=== PATIENT | female | born 1955 | race Caucasian/White ===

== ENCOUNTER 2018-10-08 08:29 | Inpatient (IN) | payer MEDICARE ==
[~2018-10-08] VITALS: Ht 165.1 cm; Wt 72.5 kg
--- NOTE | ~2018-10-08 | HEMODYNAMI ---
PATIENT:VIDYA GRAY MEDICAL RECORD: [id number] : 55 [facility] [id number] ADMISSION DATE: 10/08/18 Generatedon:10/08/201819:36 Patient name: VIDYA GRAY Patient #: [id number] SSN: DO B: 1955 Date of study: 10/08/2018 Page: Of Hemodynamic Procedure Report Patient Data Patient Demographics Procedure consent was obtained First Name: VIDYA Gender: Female Last Name: ISAAC : 1955 [facility] Initial: AMY Age: 63 year(s) Patient #: [id number] Race: Additional ID: [id number] Contact details [address]: [address] [place] [address] State: [place] City: [facility] Zip code: [address] Past Medical History History of disease Date Diagnosis Comments Peripheral vascular disease Allergies Allergen Reaction Date Comments Reported Morphine 12/06/2014 Other allergy 12/06/2014 morphine Morphine 10/08/2018 Other allergy 10/08/2018 macrobid Admission Admission Data Admission Date: 10/08/2018 Admission Time: 8:29 Room #: D.2126 Height (in.): 65 BSA: 1.76 (m2) Height (cm.): 165.1 BMI: 25.13 (kg/m2) Weight (lbs.): 151 Weight (kg.): 68.49 Procedure Procedure Types Cath Procedure Peripheral Cath Diagnostic Procedure Abd/Extremity Extremities Bilat Lower Extremity Procedure Description Procedure Date Procedure Date: 10/08/2018 Procedure Start Time: 16:54 Procedure Staff Name Function Dio Blair MD Performing Physician Lelia Patton RT Marketing Operations Specialist Darling Fuchs RN Nurse Doron Mathews RT Scrub Procedure Data Cath Procedure Fluoroscopy Diagnostic fluoroscopy Total fluoroscopy Time: time: 23.6 min 23.6 min Diagnostic fluoroscopy Total fluoroscopy dose: dose: 1183 mGy 1183 mGy Contrast Material Contrast Material Type Amount (ml) Isovue 300 200 Entry Location Entry Primary Successful Side Size Upsize Upsize Entry Closure Succes sful Closure Location (Fr) 1 (Fr) 2 (Fr) Remarks Device Remarks Femoral Exoseal artery Procedure Medications Medication Administration Route Dosage Heparin Flush Bag added to field 3 bags (1000units/500ml NS) Lidocaine 1% added to field 20 Versed I.V. 1 mg Fentanyl I.V. 50 mcg Benadryl I.V. 50 mg Versed I.V. 1 mg Fentanyl I.V. 50 mcg Heparin Bolus I.V. 4000 units Versed I.V. 1 mg Fentanyl I.V. 50 mcg Heparin Bolus I.V. 1000 units Versed I.V. 1 mg Fentanyl I.V. 50 mcg Heparin Bolus I.V. 1000 units Nitroglycerin IC/IA I.A. 300 mcg Hemodynamics Rest BSA: 1.76 (m2) O2 Consumption: Estimated: 157.18 (ml/min) O2 Consumption indexed : Estimated:89.31 (ml/min/m) Heart Rate: 58 (bpm) Snapshots Pre Cath Intra NCS Post Cath Vital Signs Time Heart Resp SPO2 etCO2 NIBP (mmHg) Rhythm Pain Sedation Rate (ipm) (%) (mmHg) Status Level (bpm) 16:23:47 62 7 98 42 124/63(106) NSR 0 (11) 10(A) , No pain 16:28:01 60 6 97 26.2 120/57(105) NSR 0 (11) 10(A) , No pain 16:32:09 61 9 97 43.5 125/65(104) NSR 0 (11) 10(A) , No pain 16:36:20 58 6 97 41.2 122/62(92) NSR 0 (11) 10(A) , No pain 16:40:32 59 9 97 44.2 119/56(96) NSR 0 (11) 10(A) , No pain 16:44:40 58 23 97 45 121/65(104) NSR 0 (11) 10(A) , No pain 16:48:50 62 5 98 51 127/62(117) NSR 0 (11) 10(A) , No pain 16:53:02 59 9 98 44.2 124/61(102) NSR 0 (11) 10(A) , No pain 16:58:01 59 6 97 48.7 Measuring NSR 0 (11) 8(A) , No pain 16:58:24 58 5 98 44.2 110/52(74) NSR 0 (11) 8(A) , No pain 17:02:29 63 0 98 39.7 118/63(108) NSR 0 (11) 8(A) , No pain 17:06:39 58 4 98 41.2 117/58(100) NSR 0 (11) 8(A) , No pain 17:10:47 61 11 97 42.7 119/62(98) NSR 0 (11) 8(A) , No pain 17:15:03 61 20 98 48.7 102/38(83) NSR 0 (11) 8(A) , No pain 17:19:07 63 11 97 43.4 120/59(102) NSR 0 (11) 8(A) , No pain 17:23:19 63 12 95 0 100/54(83) NSR 0 (11) 8(A) , No pain 17:27:23 64 16 97 38.9 116/56(95) NSR 0 (11) 8(A) , No pain 17:31:33 63 13 96 31.5 107/55(87) NSR 0 (11) 8(A) , No pain 17:35:38 61 11 97 13.4 106/58(91) NSR 0 (11) 8(A) , No pain 17:39:44 59 14 97 43.5 100/59(89) NSR 0 (11) 8(A) , No pain 17:43:48 59 12 96 46.5 113/58(80) NSR 0 (11) 8(A) , No pain 17:47:56 60 12 97 44.2 108/57(90) NSR 0 (11) 8(A) , No pain 17:52:01 60 12 97 40.5 103/57(86) NSR 0 (11) 8(A) , No pain 17:56:07 60 10 97 39 110/57(89) NSR 0 (11) 8(A) , No pain 18:00:13 60 11 97 39 116/59(95) NSR 0 (11) 8(A) , No pain 18:04:23 58 13 97 38.2 106/56(87) NSR 0 (11) 8(A) , No pain 18:08:31 60 14 97 38.2 105/53(86) NSR 0 (11) 8(A) , No pain 18:12:37 60 12 96 17.9 111/59(85) NSR 0 (11) 8(A) , No pain 18:16:45 60 12 95 15.7 112/59(94) NSR 0 (11) 8(A) , No pain 18:20:54 60 20 96 33.7 111/54(90) NSR 0 (11) 8(A) , No pain 18:25:04 66 11 95 39.7 93/53(74) NSR 0 (11) 8(A) , No pain 18:29:06 68 11 94 39.7 102/54(72) NSR 0 (11) 8(A) , No pain 18:33:10 67 14 96 41.2 99/58(76) NSR 0 (11) 8(A) , No pain 18:37:13 67 12 96 38.9 109/59(85) NSR 0 (11) 8(A) , No pain 18:41:21 64 11 96 38.2 104/55(89) NSR 0 (11) 8(A) , No pain 18:45:27 65 9 98 51.7 105/57(74) NSR 0 (11) 8(A) , No pain 18:49:33 64 12 97 49.4 109/60(79) NSR 0 (11) 8(A) , No pain 18:53:39 64 13 97 34.4 97/62(73) NSR 0 (11) 8(A) , No pain 18:57:42 63 8 97 41.2 106/54(87) NSR 0 (11) 8(A) , No pain 19:01:48 64 15 97 39.7 114/62(98) NSR 0 (11) 8(A) , No pain 19:05:55 65 12 97 35.9 101/60(93) NSR 0 (11) 8(A) , No pain 19:09:59 66 12 97 30.7 119/61(85) NSR 0 (11) 9(A) , No pain 19:14:11 63 7 96 84/55(66) NSR 0 (11) 10(A) , No pain 19:19:04 68 7 98 44.9 108/60(80) NSR 0 (11) 10(A) , No pain 19:23:10 64 8 97 38.2 113/60(79) NSR 0 (11) 10(A) , No pain 19:27:16 62 14 97 41.2 110/60(95) NSR 0 (11) 10(A) , No pain 19:31:21 65 11 99 46.5 103/62(82) NSR 0 (11) 10(A) , No pain 19:35:25 61 10 98 54 103/58(78) NSR 0 (11) 10(A) , No pain Medications Time Medication Route Dose Verified Delivered Reason Notes Effe ctiveness by by 16:48:10 Heparin Flush added 3 Dio Wharton used for Bag to bags Rossy Blair MD procedure (1000units/500ml field HAM NS) 16:48:24 Lidocaine 1% added 20ml Dio Wharton for local to vial Rossy Blair MD anesthetic field 16:55:42 Versed I.V. 1 mg Dio Hastings for Jef Blair RN sedation 16:55:57 Fentanyl I.V. 50 Dio Darling for mcg Jef Blair RN sedation 17:02:04 Benadryl I.V. 50 mg Dio Hastings for Jef Blair RN sedation 17:09:46 Versed I.V. 1 mg Dio Sanchezody for Jef Blair RN sedation 17:09:54 Fentanyl I.V. 50 Dio Darling for mcg Jef Blair RN sedation 17:20:54 Heparin Bolus I.V. 4000 Dio Darling Per units Jef Blair RN physician 18:01:34 Versed I.V. 1 mg Dio Darling for Jef Blair RN sedation 18:01:42 Fentanyl I.V. 50 Dio Darling for mcg Jef Blair RN sedation 18:23:22 Heparin Bolus I.V. 1000 Dio Darling Per units Jef Blair RN physician 18:23:29 Versed I.V. 1 mg Dio Darling for Jef Blair RN sedation 18:23:36 Fentanyl I.V. 50 Dio Hastings for [facility] Jef Blair RN sedation 18:59:40 Heparin Bolus I.V. 1000 Dio Hastings Per units Jef Blair RN physician 19:11:18 Nitroglycerin I.A. 300 Dio Wharton IC/IA [facility] Rossy Blair MD MD Procedure Log Time Note 15:46:44 Patient Height : 65 inches 15:46:51 Patient Weight : 151 lbs 15:47:36 Use device set IR Diagnostic 15:48:53 TUBING Contrast Injection High Pressure (OIJ114V) opened to sterile field. 15:48:53 ROSE 260 wire (J32815) opened to sterile field. 15:48:54 CHOICE PT Floppy Straight 300cm guide wire ([id number]) opened to sterile field. 15:48:55 DOC .035 wire (F12053) opened to sterile field. 15:48:56 SHEATH 5FR [place] (IUY815) opened to sterile field. 15:48:57 Micropuncture VSI 4FR kit opened to sterile field. 15:48:58 Tegaderm 4 x 4 (1626W) opened to sterile field. 15:48:59 Sterile Angiographic Pack opened to sterile field. 15:49:00 Bag Decanter (2002S) opened to sterile field. 15:49:01 ACIST Manifold (51955) opened to sterile field. 15:49:02 ACIST Hand Control (72196) opened to sterile field. 15:49:03 ACIST Syringe (59397) opened to sterile field. 16:12:40 Time tracking: Regular hours (M-F 7:00 - 5:00) 16:12:55 Plan of Care:Hemodynamics will remain stable., Cardiac rhythm will remain stable., Comfort level will be maintained., Respiratory function will remain adequate., Patient/ family verbilizes understanding of procedure., Procedure tolerated without complication., Recovers from procedure without complications.. 16:13:02 Patient received from Med II to IR Alert and oriented. Tansferred to table in Supine position. 16:13:06 Signed procedure consent form obtained from patient. 16:13:08 Correct patient and procedure confirmed by team. 16:13:21 H&P Date Dictated: 10/08/2018 Within 30 days and on chart.. 16:13:23 Pre-procedure instructions explained to patient. 16:13:24 Pre-op teaching completed and patient verbalized understanding. 16:13:27 Family in waiting room. 16:13:32 Patient NPO since Midnight. 16:13:51 Patient allergic to Morphine 16:14:39 Patient allergic to Other allergymacrobid 16:14:44 Is the patient allergic to Iodine/contrast media? No. 16:14:46 Is patient on blood thinner?Yes 16:14:51 Patient diabetic? Yes. 16:14:53 If diabetic: On Metformin? No 16:14:55 - 16:14:57 ----Pre-sedation anethsthesia assessment.---- 16:15:01 Previous problem with sedation/anesthesia? No ? 16:15:07 Snore? Yes 16:15:09 Sleep apnea? No 16:15:13 Deviated septum? No 16:15:15 Opens mouth fully? Yes 16:15:18 Sticks out tongue? Yes 16:15:25 Airway obstruction? Yes cad and copd 16:15:39 Dentures? Yes secured 16:16:13 IV patent on arrival in right forearm with D5/.45%NaCl at [facility]. 16:16:26 Right groin area was prepped with chlora-prep and draped in sterile fashion 16:16:28 - 16:20:07 Pre procedure: right dorsailis pedis pulse Doppler 16:20:12 Pre procedure: right posterior tibial pulse Doppler 16:22:32 Vital chart was started 16:24:36 - 16:24:41 ECG and BP/O2 sat monitors applied to patient. 16:24:44 Baseline sample Acquired. 16:24:46 Full Disclosure recording started 16:24:48 - 16:32:55 Angiodynamics Omniflush 5Fr 65cm ([id number]) opened to sterile field. 16:33:07 GLIDE WIRE ANGLE 180cm (QA7780) opened to sterile field. 16:33:28 TORQUE DEVICE PLASTIC .038 ( TD01) opened to sterile field. 16:34:14 Pre procedure: left dorsailis pedis pulse Doppler 16:34:33 Pre procedure: left posterior tibial pulse Doppler 16:35:12 GLIDE CATHETER 5FR ANGLED 65cm (CG507) opened to sterile field. 16:48:10 Heparin Flush Bag (1000units/500ml NS) 3 bags added to field was administered by Dio Blair MD; used for procedure; 16:48:24 Lidocaine 1% 20ml vial added to field was administered by Dio Blair MD; for local anesthetic; 16:50:16 Fire Safety Assessment: A--An alcohol-based skin anteseptic being used preoperatively., C--Open oxygen or nitrous oxide is being used. 16:53:16 Physician arrived 16:53:18 --------ALL STOP TIME OUT------ 16:53:19 Final Timeout: patient, procedure, and site verified with staff and physician. All members of the team are in agreement. 16:54:49 Procedure started. 16:54:52 Local anesthetic to right femoral artery with Lidocaine 1% by Dio Blair MD.INITIAL ACCESS ONLY 16:55:42 Versed 1 mg I.V. was administered by Darling Fuchs RN; for sedation; 16:55:57 Fentanyl 50 mcg I.V. was administered by Darling Fuchs RN; for sedation ; 17:01:19 Arterial access obtained using ultrasound guidance. 17:01:33 AMPLATZ Super Stiff 75cm wire ([id number]) opened to sterile field. 17:02:04 Benadryl 50 mg I.V. was administered by Darling Fuchs RN; for sedation; 17:09:46 Versed 1 mg I.V. was administered by Darling Fuchs RN; for sedation; 17:09:54 Fentanyl 50 mcg I.V. was administered by Darling Fuchs RN; for sedation ; 17:10:45 SHEATH 6FR [place] (RSR01) opened to sterile field. 17:16:50 ROADRUNNER .035 260 glide wire (G28513) opened to sterile field. 17:16:51 CXI SUPPORT .035 135 CM STR catheter (P48842) opened to sterile field. 17:18:30 Angiography was performed. 17:20:54 Heparin Bolus 4000 units I.V. was administered by Darling Fuchs RN; Per physician; 17:24:17 GLIDE WIRE ANGLE 260cm (JA5201) opened to sterile field. 18:01:34 Versed 1 mg I.V. was administered by Darling Fuchs RN; for sedation; 18:01:42 Fentanyl 50 mcg I.V. was administered by Darling Fuchs RN; for sedation ; 18:14:48 CXI Catheter 90cm (E35999) opened to sterile field. 18:15:21 SHEATH 6FR Slender (80-1060) opened to sterile field. 18:17:42 INFLATOR BasixTOUCH (UR7752) opened to sterile field. 18:18:29 Inflate balloon Inflation number: 1 A Evercross 5 x 100 x 135 Balloon ([id number]) was prepped and advanced across the Undefined1 , then inflate . 18:23:22 Heparin Bolus 1000 units I.V. was administered by Darling Fuchs RN; Per physician; 18:23:29 Versed 1 mg I.V. was administered by Darling Fuchs RN; for sedation; 18:23:36 Fentanyl 50 mcg I.V. was administered by Darling Fuchs RN; for sedation ; 18:27:53 Navicross Support Straight .035 150cm catheter (RQ96170) opened to sterile field. 18:31:50 Inflate balloon Inflation number: 2 A Evercross 3 x 100 x 135 Balloon ([id number]) was prepped and advanced across the Undefined1 , then inflated . 18:39:23 Hawkone Medium Atherectomy System (H1-M) opened to sterile field. 18:54:12 Inflate balloon Inflation number: 3 A IN.PACT Admiral 5 x 150 x 130 DCB balloon ([id number]) was prepped and advanced across the Undefined1 , then inflated . 18:58:14 Inflate balloon Inflation number: 1 A IN.PACT Admiral 5 x 150 x 130 DCB balloon ([id number]) was prepped and advanced across the Undefined2 , then inflated . 18:59:40 Heparin Bolus 1000 units I.V. was administered by Darling Fuchs RN; Per physician; 19:07:29 SHEATH 6FR [place] (IEW738) opened to sterile field. 19:11:18 Nitroglycerin IC/IA 300 mcg I.A. was administered by Dio Blair MD; ; 19:13:51 EXOSEAL 6Fr (EX600) opened to sterile field. 19:17:16 Sheath removed intact; hemostasis achieved with Exoseal to the Femoral artery. 19:17:16 A sheath was inserted into the Femoral artery 19:17:20 Procedure ended.(Physican Out) 19:17:37 Fluoroscopy time 23.60 minutes. 19:17:43 Fluoroscopy dose: 1183 mGy 19:17:43 Flurop Dose total: 1183 19:17:50 Contrast amount:Isovue 300 200ml. 19:17:58 Procedure and supply charges have been captured, reviewed, submitted an d are correct. 19:20:39 Report given to Total Eclipse. 19:36:15 Vital chart was stopped Intervention Summary Intervention Notes Time ActionType Lesion and Equipment Used Action# Pressure Duration Attributes 18:18:29 Inflate Undefined1 Evercross 5 x 1 0 00:00 balloon 100 x 135 Balloon ([id number]) 18:31:50 Inflate Undefined1 Evercross 3 x 2 0 00:00 balloon 100 x 135 Balloon ([id number]) 18:54:12 Inflate Undefined1 IN.PACT Admiral 3 0 00:00 balloon 5 x 150 x 130 DCB balloon ([id number]) 18:58:14 Inflate Undefined2 IN.PACT Admiral 1 0 00:00 balloon 5 x 150 x 130 DCB balloon ([id number]) Device Usage Item Name Manufacture Quantity Catalog Number Hospital Part Current Minimal Lot# / Charge Number Stock Stock Serial# Code TUBING Contrast Merit Medical 1 [id number] 295200 980331 840745 5 Injection High Pressure (DYG243V) ROSE 260 wire Cook Medical 1 Q02033 805230 20919 524427 5 (A61799) CHOICE PT Glouster 1 [id number] 248216 086090 103362 5 Floppy Straight Scientific 300cm guide wire (80244028) DOC .035 wire Cook Medical 1 K85220 391398 901110 5 (A79478) SHEATH 5FR Terumo 1 LMS191 894913 731493 752230 5 [place] (STM414) Micropuncture VSI VASCULAR 1 7266V 850039 384390 5 VSI 4FR kit SOLUTIONS Tegaderm 4 x 4 3M 1 1626W 184656 030815 900388 5 (1626W) Sterile Cardinal 1 [id number] 317769 053928 5 Angiographic Health Pack Bag Decanter Microtek 1 2001S 025902 02550 962332 5 (2001S) Medical Inc. ACIST Manifold Acist Medical 1 01083 982356 880459 191745 5 (18761) Systems Inc ACIST Hand Acist Medical 1 26361 313937 254528 934586 5 Control (24055) Systems Inc ACIST Syringe Acist Medical 1 44460 622742 129479 215486 20 (57703) Systems Inc Angiodynamics Angiodynamics 1 58236688 536953 131732 041105 5 Omniflush 5Fr 65cm (45554213) GLIDE WIRE Terumo 1 ZY2840 936685 340507 764656 5 ANGLE 180cm (NP3191) TORQUE DEVICE Glouster 1 TD01 589474 082381 289304 5 PLASTIC .038 ( Scientific TD01) GLIDE CATHETER Terumo 1 CG507 383225 390089 5 5FR ANGLED 65cm (CG507) AMPLATZ Super Glouster 1 [id number] 143016 813207 082564 5 Stiff 75cm wire Scientific ([id number]) SHEATH 6FR Terumo 1 RSR01 953243 48843 625119 5 Destination (RSR01) ROADRUNNER .035 Cook Medical 1 P14167 195078 417979 774542 5 9745589 260 glide wire (U89080) CXI SUPPORT Cook Medical 1 D72027 631822 690649 512583 5 4190844 .035 135 CM STR catheter (Y97412) GLIDE WIRE Terumo 1 ZW1356 632524 286132 669262 5 ANGLE 260cm (CL0705) CXI Catheter [facility] 1 K24859 396460 920255 787525 5 0850642 90cm (N18114) SHEATH 6FR Terumo 1 [id number] 573633 959492 150627 5 Slender (80-1060) INFLATOR [facility] 1 RK4880 609896 544590 101826 5 BasixTOUCH (RK5327) Evercross 5 x Medtronic 1 [id number] 791573 275350 629266 5 o282082 100 x 135 Balloon ([id number]) Navicross Terumo 1 DD11929 655132 725138 219639 5 Support Straight .035 150cm catheter (ZN96816) Evercross 3 x Medtronic 1 [id number] 629996 13990 442322 5 o198220 100 x 135 Balloon ([id number]) Hawkone Medium Medtronic 1 H1-M 741484 5152875 7 5 Atherectomy System (H1-M) IN.PACT Admiral Medtronic 2 [id number] 849009 7870177 197009 5 [id number] 5 x 150 x 130 [id number] DCB balloon ([id number]) SHEATH 6FR Terumo 1 PTL677 982151 562496 913708 40 [place] (JAM241) EXOSEAL 6Fr Cardinal 1 EX600 808671 086842 465340 10 [id number] (EX600) Health Signature Audit [place] Stage Time Signature Unsigned Intra-Procedure 10/08/2018 Lelia Patton 7:36:10 PM RT(R) [place] [address] [place] [address]
[~2018-10-08 08:29] MED LIST: BAYER CHEWABLE81 MG PO; ELAVIL25 MG PO; LEVEMIR100 U/M1 SC; NEURONTIN 300300 MG PO; PERCOCET 7.5/321 TAB PO; PLAVIX75 MG PO; SYNTHROID75 MCG PO; TALWIN NX1 TAB PO; ZEBETA5 MG PO
[2018-10-08] MEDS ORDERED: LEVEMIR FL100 UNIT/1 SC (09:18)
[2018-10-08] MEDS ORDERED: PAXIL20 MG PO (09:34)
[2018-10-08] MEDS ORDERED: FUROSEMIDE20 MG PO (09:35)
[2018-10-08] MEDS ORDERED: TALWIN NX1 TAB PO (09:36)
[2018-10-08] MEDS ORDERED: TALWIN NX1 TAB (09:38)
[2018-10-08] MEDS ORDERED: LIPITOR80 MG PO (09:40)
[2018-10-08] MEDS ORDERED: ZANAFLEX4 MG PO (09:43)
[2018-10-08] MEDS ORDERED: VALIUM10 MG (09:47)
[2018-10-08 10:16] LABS: BASOPHILS 0.3 % (0-2); EOSINOPHILS 3.1 % (0-7); HEMATOCRIT 42.2 % (36.0-48.0); HEMOGLOBIN 14.7 g/dL (12-16); IMMATURE GRANULOCYTES 0.6 % (0-5); MCH 29.7 pg (26.0-34.0); MCHC 34.8 g/dL (31.0-37.0); MCV 85.3 fL (80.0-100.0); MEAN PLATELET VOLUME 9.1 fL (7.4-10.4); MONOCYTES 6.3 % (2-11); NEUTROPHILS 70.7 % (40-80); PLATELET COUNT 193 10x3/uL (130-400); RBC 4.95 10x6/uL (4.00-5.40); RDW 13.1 % (11.5-14.5); WBC 7.1 10x3/uL (4.8-10.8)
[2018-10-08 10:17] LABS: INR 1.02 (0.85-1.17); PROTIME 12.9 SECONDS (11.6-15.0)
[2018-10-08 10:18] LABS: APTT 33.4 SECONDS (22.8-39.4)
[2018-10-08] MEDS ORDERED: BISOPROLOL-HCT1 EAC1 PO (10:19)
[2018-10-08] MEDS ORDERED: ROPINIROLE HCL2 MG PO (10:22)
[2018-10-08] MEDS ORDERED: ZANTAC300 MG PO (10:23)
[2018-10-08 10:25] LABS: ANION GAP 9.9 mmol/L (8-16); BILIRUBIN - TOTAL 0.33 mg/dL (0.2-1.3); CALCIUM 8.5 mg/dL (8.5-10.1); CARBON DIOXIDE 30.9 mmol/L (21.0-32.0); POTASSIUM - SERUM 3.8 mmol/L (3.5-5.1); PROTEIN - SERUM 7.2 g/dL (6.4-8.2)
[2018-10-08 11:19] VITALS: BP 122/59; BMI 25.1
--- NOTE | 2018-10-08 11:28 | NUR ---
ARRIVED FROM HOME VIA A DIRECT ADMIT. CO WOUND IN L FOOT ON 5TH METATARSAL. DRESSING INTACT WITH BLOODY DRAINAGE. IV STARTED WITH 20G IN R FOREARM. DEMEROL COMPUTER NUMERICAL CONTROL OPERATOR STARTED. SEE ASSESSMENT FOR FURTHER EVAL.
[2018-10-08 12:44] VITALS: BP 103/53
--- NOTE | 2018-10-08 13:30 | NUR ---
IV 20 SHARAD TO RIGHT FA. DEMEROL VENETIAN BLIND MECHANIC STARTED. TELEMERTY SHOWS SB 58, DENIES ANY NEEDS. NPO FOR NOW
--- NOTE | 2018-10-08 14:15 | NUR ---
TO SPECIALS FOR IR TO LEFT LEG
[2018-10-08 16:30] VITALS: BP 110/58
[2018-10-08 20:00] VITALS: BP 120/53
[2018-10-08 20:22] VITALS: BP 120/53
--- NOTE | 2018-10-08 20:25 | NUR ---
RECEIVED PT BACK FROM IR, DRESSING TO R. GROIN D/C/I, SOFT AROUND DRESSING, DRESSING TO L. ANKLE, DCI, HELPDESK ADMINISTRATOR HOOKED BACK UP, PROVIDE PT WITH A SANDWICH AND COFFEE
[2018-10-08 20:26] LABS: HEMATOCRIT 42.1 % (36.0-48.0); HEMOGLOBIN 14.4 g/dL (12-16); MCH 30.1 pg (26.0-34.0); MCHC 34.2 g/dL (31.0-37.0); MEAN PLATELET VOLUME 8.9 fL (7.4-10.4); RBC 4.79 10x6/uL (4.00-5.40); WBC 5.7 10x3/uL (4.8-10.8)
[2018-10-08 20:29] LABS: MCV 87.9 fL (80.0-100.0)
[2018-10-08 20:35] LABS: INR 1.22 (0.85-1.17); PROTIME 14.9 SECONDS (11.6-15.0)
[2018-10-08 20:46] LABS: APTT 112.7 SECONDS (22.8-39.4)
--- NOTE | 2018-10-08 23:00 | NUR ---
HEPARIN STARTED AT 800 UNIT TO LFA
--- NOTE | 2018-10-08 23:04 | NUR ---
22G PIV STARTED IN LEFT FOREARM. ONE ATTEMPT. HEPARIN STARTED ORDERED. PT HAS NO S/S OF DISTRESS. FAMILY AT BEDSIDE. WILL CPOC
[2018-10-09] VITALS (7 sets, daily range): BP systolic 99–125; BP diastolic 43–63; Ht 165.1 cm; Wt 72.5 kg
[2018-10-09 00:10] LABS: HEMATOCRIT 38.3 % (36.0-48.0); HEMOGLOBIN 13.2 g/dL (12-16); MCHC 34.5 g/dL (31.0-37.0); MEAN PLATELET VOLUME 8.6 fL (7.4-10.4); RBC 4.4 10x6/uL (4.00-5.40); RDW 12.5 % (11.5-14.5); WBC 4.9 10x3/uL (4.8-10.8)
--- NOTE | 2018-10-09 04:06 | NUR ---
I have reviewed this patient and I concur with the Shift Assessment completed by the Licensed Practical Nurse today this shift.
[2018-10-09 05:49] LABS: HEMATOCRIT 39.7 % (36.0-48.0); HEMOGLOBIN 13.1 g/dL (12-16); MCH 28.7 pg (26.0-34.0); MCV 87.1 fL (80.0-100.0); MEAN PLATELET VOLUME 9.3 fL (7.4-10.4); RBC 4.56 10x6/uL (4.00-5.40); RDW 13.1 % (11.5-14.5); WBC 6.1 10x3/uL (4.8-10.8)
[2018-10-09 06:11] LABS: CALC OSMOLALITY 278 mosm/kg (275-300); CARBON DIOXIDE 29.8 mmol/L (21.0-32.0); CHLORIDE - SERUM 100 mmol/L (98-107); CREATININE - SERUM 0.8 mg/dL (0.6-1.3); GLUCOSE 210 mg/dL (74-106); POTASSIUM - SERUM 3.6 mmol/L (3.5-5.1); SODIUM 137 mmol/L (136-145); eGFR NON AFRICAN AMERICAN 77 mL/min (90-120)
[2018-10-09 06:12] LABS: UREA NITROGEN 9 mg/dL (7-18)
--- NOTE | 2018-10-09 07:00 | NUR ---
RECEIVED REPORT. ASSUMED CARE OF PATIENT. CALL LIGHT WITHIN REACH. PATIENT RESTING IN BED WITH EYES CLOSED. RESP EVEN AND UNLABORED. SR ON TELEMETRY. PATIENTS SPOUSE AT BEDSIDE. NO DISTRESS.
--- NOTE | 2018-10-09 09:31 | NUR ---
FSBS 212. 20 UNITS LEVIMER ADMINISTERED ORDERED
--- NOTE | 2018-10-09 11:42 | NUR ---
SPOKE WITH AND RECEIVED VERBAL ORDERS TO PROVIDE WOUND CARE TO LEFT METATARSAL THAT HAS BEEN BEING TREATED AT THE WOUND CLINIC. THANKED AND ORDERS HAVE BEEN PLACED AT THIS TIME.
--- NOTE | 2018-10-09 12:01 | NUR ---
FSBS 235. UNITS INSULIN ADMINISTERED PER SLIDING SCALE.
--- NOTE | 2018-10-09 13:29 | NUR ---
PER VERBAL ORDERS RECEIVED BY , HEPARIN DRIP D/C'D AT THIS TIME. SEE INTERVENTIONAL RADIOLOGY NOTE FOR CONFIRMATION OF THIS ORDER.
--- NOTE | 2018-10-09 13:46 | NUR ---
WOUND CARE TO LEFT FOOT COMPLETE AT THIS TIME. TOLERATED WOUND CARE WELL. LATERAL ASPECT OF FOOT AT THE 5TH METATARSAL. WOUND IS APPROX 2 2 X 2 X 1.5CM. WOUND IS VERY ODOROUS, DRAINAGE IS BLOOD/RUST COLORED. LESS THAN 25% SCATTTERED SLOUGH TO WOUND BED. EDGES ARE MACERATED. SKIN PREP APPLIED TO WOUND EDGES PRIOR TO LIGHTLY REPACKING WOUND BED WITH DAMPENED DAKINS 2X2 GAUZE.
--- NOTE | 2018-10-09 16:52 | NUR ---
FSBS 310. 12 UNITS HUMULIN ADMINISTERED ORDERED PER SLIDING SCALE.
--- NOTE | 2018-10-09 18:34 | NUR ---
RESTING WITH EYES CLOSED. NO DISTRESS. CALL LIGHT WITHIN REACH.
--- NOTE | 2018-10-09 19:30 | NUR ---
RECEIVED REPORT, WILL ASSUME CARE OF PT, PT VISITING WITH , DENIES ANY NEEDS AT THIS TIME, BED IS LOW, SRX 2, CALL LIGHT IN REACH, WILL CONTINUE PLAN OF CARE
--- NOTE | 2018-10-09 20:04 | NUR ---
COLLECT UA, TAKEN TO LAB
[2018-10-09 20:33] LABS: APPEARANCE CLEAR (CLEAR); BILIRUBIN NEGATIVE (NEGATIVE); COLOR YELLOW (YELLOW); GLUCOSE NEGATIVE (NEGATIVE); KETONE NEGATIVE (NEGATIVE); NITRITE NEGATIVE (NEGATIVE); PROTEIN NEGATIVE (NEGATIVE); UROBILINOGEN NORMAL (NORMAL)
--- NOTE | 2018-10-09 20:45 | NUR ---
PM HEAD COOK IN ROOM ASSISTING PT WITH WASH UP
--- NOTE | 2018-10-09 21:13 | NUR ---
PM MEDS GIVEN, ASK FOR NORCO, GIVEN REQUESTING, [id number] 8 UNITS OF HUMULIN R, ASLO 42 UNITS OF LEVEMIR, PROVIDED ICE WATER
[2018-10-10] VITALS: BP 120/52
[2018-10-10 04:00] VITALS: BP 129/69
--- NOTE | 2018-10-10 04:30 | NUR ---
I have reviewed this patient and I concur with the Shift Assessment completed by the Licensed Practical Nurse today this shift.
--- NOTE | 2018-10-10 04:30 | NUR ---
I have reviewed this patient and I concur with the Shift Assessment completed by the Licensed Practical Nurse today this shift.
--- NOTE | 2018-10-10 07:00 | NUR ---
RECEIVED REPORT. ASSUMED CARE OF PATIENT. RESTING IN BED WITH EYES OPEN. PATIENT HAVING COFFEE AT THIS TIME. PATIENT AT BEDSIDE. CALL LIGHT WITHIN REACH. DENIES NEEDS AT THIS TIME. NO DISTRESS.
[2018-10-10 07:43] VITALS: BP 131/56
[2018-10-10 08:12] LABS: HEMATOCRIT 39.9 % (36.0-48.0); HEMOGLOBIN 13.9 g/dL (12-16); MCH 29.8 pg (26.0-34.0); MCHC 34.8 g/dL (31.0-37.0); MCV 85.4 fL (80.0-100.0); MEAN PLATELET VOLUME 9.5 fL (7.4-10.4); RBC 4.67 10x6/uL (4.00-5.40); WBC 5.5 10x3/uL (4.8-10.8)
--- NOTE | 2018-10-10 08:53 | NUR ---
FSBS 160. 20 UNITS LEVIMER ADMINISTERED ORDERED.
[2018-10-10 11:30] VITALS: BP 109/54
--- NOTE | 2018-10-10 12:05 | NUR ---
FSBS 248. 8 UNITS INSULIN ADMINISTERED PER SLIDING SCALE.
--- NOTE | 2018-10-10 13:14 | NUR ---
DR. ELISE HERE FOR ROUNDS. ACCORDING TO PATIENT, SHE IS GETTING TO GO HOME TODAY.
[2018-10-10] MEDS ORDERED: HYDROCODON-ACE1 EAC7 PO (13:23)
--- NOTE | 2018-10-10 13:28 | NUR ---
MEDICATED FOR PAIN TO LEG AND FOOT AT THIS TIME.
--- NOTE | 2018-10-10 14:27 | NUR ---
20 GAUGE IV REMOVED FROM RIGHT FOREARM. CATHETER TIP INTACT. NO BLEEDING FROM SITE. 2X2 GAUZE APPLIED AND SECURED WITH BANDAID. PATIENT IS DISCHARGING TO HOME. 22 GAUGE IV REMOVED FROM LEFT FOREARM. CATHETER TIP INTACT. NO BLEEDING FROM SITE. 2X2 GAUZE APPLIED AND SECURED WITH BANDAID. TOLERATED IV REMOVAL WELL. NO DISTRESS.
--- NOTE | 2018-10-10 14:40 | NUR ---
DISCHARGE INSTRUCTIONS PROVIDED TO PATIENT AND HER SPOUSE. PATIENT VERBALIZED UNDERSTANDING FOR ALL INSTRUCTIONS PROVIDED.
--- NOTE | 2018-10-10 15:04 | NUR ---
PATIENT LEFT UNIT VIA WHEELCHAIR IN NO DISTRESS WITH ALL PERSONAL BELONGINGS. PATIENT DISCHARGED TO HOME WITH HER . PATIENT PROVIDED HARD SCRIPT FROM DR. ELISE FOR [place]. NO DISTRESS UPON LEAVING UNIT. TELEMETRY RETURNED TO MONITOR STATION.
--- NOTE | 2018-10-11 09:30 | MORECARE ---
CASE MANAGEMENT DISCHARGE SUMMARY PATIENT: VIDYA GRAY UNIT: [id number] ADM DATE: 10/08/18 AGE: 63 : 55 SEX: F ROOM/BED: D.6426 AUTHOR: KACIE CLARK PHYSICIAN: REFERRING PHYSICIAN: SUDHAKAR ELISE MD DATE OF SERVICE: 10/11/18 Discharge Plan Patient Name: VIDYA GRAY Facility: [facility]:[place] : 1955 Planned Disposition: Home Anticipated Discharge Date: 10/10/18 Discharge Date: 10/10/2018 Expected LOS: 2 Initial Reviewer: [email or web address] Initial Review Date: 10/11/2018 Generated: 10/11/18 10:30 am Coverage Notice Reviewer: [email or web address] Jessica Kirk Notice Issued Date-Time: 10/10/2018 13:30 Notice Type: IM Discharge Notice Notice Delivered To: Patient Relationship to Patient: Self Church Worker Name: Delivery Method: HAND - Hand Delivered Reena Days: Prior Verbal Notification: Recipient Understood Notice: Yes Recipient Signature: Yes Med Rec Note Co-signed by Attending: Coverage Notice Comment: Patient Name: VIDYA GRAY Page [phone] at 0930 All edits/amendments must be made on the electronic document DICTATION DATE: 10/11/18929 BOOKING AGENT: EVELYN 10/11/18929 RPT#: [id number] DC DATE:10/10/18 STATUS: DIS IN [facility] [address] [place] [address] END OF REPORT
== END 2018-10-10 15:04 | disposition home or self-care (01) | DRG 271 ==
LOC: D.M2 08:29
PROVIDERS: General Practice; Internal Medicine Nephrology; ADMIT Internal Medicine Cardiovascular Disease; ATTEND Internal Medicine Cardiovascular Disease
PROC: 047L3Z1 Dilation of Left Femoral Artery using Drug-Coated Balloon, Percutaneous Approach (ICD-10-PCS; 2018-10-08)
PROC: 04CL3ZZ Extirpation of Matter from Left Femoral Artery, Percutaneous Approach (ICD-10-PCS; principal; 2018-10-08 16:00)
DX: E11.51 Type 2 diabetes mellitus with diabetic peripheral angiopathy without gangrene (principal); L97.929 Non-pressure chronic ulcer of unspecified part of left lower leg with unspecified severity; I70.249 Atherosclerosis of native arteries of left leg with ulceration of unspecified site; I10 Essential (primary) hypertension; E78.5 Hyperlipidemia, unspecified; K21.9 Gastro-esophageal reflux disease without esophagitis